=== PATIENT | female | born 1960 | race Caucasian/White ===

== ENCOUNTER 2023-01-10 12:51 | Outpatient (REF) | payer MEDICARE, MEDICAID, SELFPAY ==
--- NOTE | ~2023-01-10 | XR_ITS ---
EXAMINATION: XR LUMBOSACRAL SPINE WITH OBLIQUES CLINICAL INFORMATION: Neurogenic claudication. COMPARISON: None available. TECHNIQUE: AP, both oblique, and lateral views of the lumbar spine. Lateral view of the lumbosacral junction. FINDINGS: There is maintained lumbar lordosis. There are disc prostheses at L3-L4 and L4-L5 disc levels stabilized with posterior hardware from L3 through L5 vertebrae. There is severe loss of L2-L3 and L5-S1 disc levels with moderate ventral spondylosis. No visible acute fracture, dislocation or subluxation seen. The SI joints are symmetrical. There is a large amount of stool in the left colon. XR/XR lumbar spine 4V min IMPRESSION: L3-L4 and L4-L5 disc fusion stabilized with posterior hardware. No visible acute fracture or lytic process seen. Severe degenerative disc changes with spondylosis L1-L2 and L5-S1 disc levels.
== END 2023-01-10 12:52 | disposition home or self-care (01) ==
LOC: HO.HOSX 12:51
PROVIDERS: Visit Provider Neurological Surgery
DX: M48.061 Spinal stenosis, lumbar region without neurogenic claudication (principal); M51.36 Other intervertebral disc degeneration, lumbar region
CPT/HCPCS: 72110; 99202

== ENCOUNTER 2023-02-06 13:16 | Inpatient (IN) | payer MEDICARE, MEDICAID, SELFPAY ==
[2023-01-25 13:01] VITALS: BP 106/75; PULSE 93; RESP 16; O2SAT 96; BMI 27.4
--- NOTE | 2023-01-25 13:18 | HO.ANESPROP2 ---
Documented by User: Liat Douglass NP 01/27/23 14:49 HPI - Anesthesia Eval Consult details Narrative: 62yo F for L2-L3 Transkambin Lumbar Interbody Fusion insertion of instrumentation,L3-L5 REMOVAL Medically optimized (new dx of RBBB) PMFSH Active Problems Active Problems: All Active Problems (Updated 01/25/23 @ 12:48 by Vane Singleton RN) Lumbar spinal stenosis due to adjacent segment disease after fusion procedure (Acute) Past Medical History Medical History (Updated 02/06/23 @ 11:10 by Khalida Beckford MD) Anxiety Ataxia Benign paroxysmal positional vertigo Bursitis Cardiomyopathy Chronic pain CKD (chronic kidney disease) Conductive hearing loss Constipation Gait instability GERD (gastroesophageal reflux disease) Habitual snoring Hyperlipidemia Imbalance Numbness Post laminectomy syndrome Post-nasal drip Schizoaffective disorder Sleep apnea Somatization disorder Spondylolisthesis of lumbar region TIA (transient ischemic attack) Urinary bladder incontinence Weakness Family History Family history of problems with anesthesia: No Surgical History Surgical History History of back surgery History of hysterectomy History of selective injection of anesthetic agent around lumbar nerve root History of total right knee replacement Hx of arthrodesis Hx of cholecystectomy Hx of tonsillectomy Hx of total knee arthroplasty S/P arthrocentesis History of Problems with Anesthesia: No Social History Social History Are you a primary clinical care coordinator to a significant other at home: No Do you presently have visiting nurse or other home services: Yes (homemaker) Patient Tobacco Use Status: Never used Tobacco Use of substances other than those prescribed or required for medical reasons: No Have you been hit, kicked, punched, or otherwise hurt by someone within the past year? If so, by whom?: No Are you DNR?: No Advance Directives: No Advance Directives Information Provided: Yes Advance Directives on File: No Recently lost weight without trying: No Nutrition Risks: No Nutritional Risk Patient : No : No Poor oral hygiene: Yes (dentures full upper and lower) Narrative Narrative: No recent illness No CP/SOB. Activity limited to pain Meds Allergies Allergy/AdvReac Type Severity Reaction Status Date / Time aluminum hydroxide Allergy Unknown Verified 01/24/23 11:41 [From Maalox Maximum Strength] ciprofloxacin Allergy Unknown Verified 01/24/23 11:41 fluoxetine [From Prozac] Allergy Agitated Verified 01/24/23 11:41 haloperidol [From Haldol] Allergy Itching Verified 01/10/23 13:28 hydrocodone [From Vicodin] Allergy Itching Verified 01/10/23 13:28 magnesium hydroxide Allergy Unknown Verified 01/24/23 11:41 [From Maalox Maximum Strength] simethicone Allergy Unknown Verified 01/24/23 11:41 [From Maalox Maximum Strength] sulfamethoxazole Allergy Unknown Verified 01/24/23 11:41 [From Bactrim] thioridazine [From Mellaril] Allergy Itching Verified 01/10/23 13:28 trimethoprim [From Bactrim] Allergy Unknown Verified 01/24/23 11:41 Home Medications Medication Instructions Recorded Confirmed Last Taken Type aripiprazole 10 mg tablet 10 mg PO DAILY 01/24/23 01/24/23 02/06/23 History azelastine 137 mcg (0.1 %) nasal 1 spray intranasal BID 01/24/23 01/24/23 02/05/23 History spray aerosol ciclopirox 0.77 % topical gel 1 appl topical BID 01/24/23 01/24/23 02/05/23 History clonazepam 0.5 mg tablet 0.5 mg PO BID PRN anxiety 01/24/23 01/24/23 Unknown History clonazepam 2 mg tablet 2 mg PO TID 01/24/23 01/24/23 02/06/23 History clozapine 100 mg tablet 300 mg PO BEDTIME 01/24/23 01/24/23 02/05/23 History diclofenac sodium 1 % topical gel 1 ea topical BID 01/24/23 01/24/23 02/05/23 History docusate sodium 100 mg capsule 100 mg PO BID 01/24/23 01/24/23 02/05/23 History estradiol 0.01% (0.1 mg/gram) 2 g vaginal DAILY 01/24/23 01/24/23 02/05/23 History vaginal cream fluticasone propionate 50 1 spray intranasal DAILY 01/24/23 01/24/23 02/05/23 History mcg/actuation nasal spray,suspension lidocaine 5 % topical patch 1 patch topical DAILY 01/24/23 01/24/23 02/05/23 History montelukast 10 mg tablet 10 mg PO BEDTIME 01/24/23 01/24/23 02/05/23 History omeprazole 40 mg capsule,delayed 40 mg PO BID 01/24/23 01/24/23 02/06/23 History release paroxetine HCl 30 mg tablet 60 mg PO DAILY 01/24/23 01/24/23 02/06/23 History polyethylene glycol 3350 17 17 g PO TID PRN constipation 01/24/23 02/06/23 02/05/23 History gram/dose oral powder sennosides 8.6 mg tablet (senna) 8.6 mg PO BEDTIME 01/24/23 01/25/23 02/05/23 History tolterodine 4 mg capsule,extended 4 mg PO BEDTIME 01/24/23 01/25/23 02/05/23 History release 24 hr loratadine 10 mg tablet 10 mg PO BEDTIME 01/25/23 01/25/23 02/05/23 History multivitamin with iron 1 tab PO DAILY 01/25/23 01/25/23 02/05/23 History paliperidone 6 mg tablet,extended 6 mg PO QAM 01/25/23 01/25/23 02/06/23 History release 24 hr (Invega) Exam Exam Date and Time: January 25, 2023 1318 Height,Weight and Vital Signs: Height 5 ft 7 in Weight 79.4 kg Last Vital Signs Pulse 93 01/25/23 13:01 Resp 16 01/25/23 13:01 BP 106/75 01/25/23 13:01 Pulse Ox 96 01/25/23 13:01 O2 Del Method Room Air 01/25/23 13:01 Pertinent Lab Results Pertinent Lab Results: 01/17/23 labs from outside facility CBC wnl except Hgb 11.5 BMP wnl except BUN 29, Creat 1.31 (known CKD followed by PCP) Narrative Narrative: EKG 12/2022 NSR RBBB Voltage Criteria for LVH Abnormal EKG RBBB is new since 12/2020 ECHO 2018 Mildly decreased systolic function. LVEF 49% Nml RV size. Wall motional abnormal. Mid-apical free wall of the ventricle appears hypokinetic. Nml LA size No significant valve disease identified Airway Mallampati Class: II TM Dist: >3cm Neck ROM: Full Denture: Upper and Lower Heart: RRR Lungs: CTAB Assessment and Plan Assessment Anesthesia Assessment: Anesthesia Plan Discussed and PAT Visit Final Anesthetic Review Family History of Problems with Anesthesia: No History of Problems with Anesthesia: No Documented by User: Khalida Beckford MD 02/06/23 11:11 PMF Active Problems Active Problems: All Active Problems (Updated 02/06/23 @ 10:48 by Khalida Beckford MD) Lumbar spinal stenosis due to adjacent segment disease after fusion procedure (Acute) Past Medical History Medical History (Updated 02/06/23 @ 11:10 by Khalida Beckford MD) Anxiety Ataxia Benign paroxysmal positional vertigo Bursitis Cardiomyopathy Chronic pain CKD (chronic kidney disease) Conductive hearing loss Constipation Gait instability GERD (gastroesophageal reflux disease) Habitual snoring Hyperlipidemia Imbalance Numbness Post laminectomy syndrome Post-nasal drip Schizoaffective disorder Sleep apnea Somatization disorder Spondylolisthesis of lumbar region TIA (transient ischemic attack) Urinary bladder incontinence Weakness Surgical History Surgical History History of back surgery History of hysterectomy History of selective injection of anesthetic agent around lumbar nerve root History of total right knee replacement Hx of arthrodesis Hx of cholecystectomy Hx of tonsillectomy Hx of total knee arthroplasty S/P arthrocentesis Social History Social History Are you a primary clinical care coordinator to a significant other at home: No Do you presently have visiting nurse or other home services: Yes (homemaker) Patient Tobacco Use Status: Never used Tobacco Use of substances other than those prescribed or required for medical reasons: No Have you been hit, kicked, punched, or otherwise hurt by someone within the past year? If so, by whom?: No Are you DNR?: No Advance Directives: No Advance Directives Information Provided: Yes Advance Directives on File: No Recently lost weight without trying: No Nutrition Risks: No Nutritional Risk Patient : No : No Poor oral hygiene: Yes (dentures full upper and lower) Meds Allergies Allergy/AdvReac Type Severity Reaction Status Date / Time aluminum hydroxide Allergy Unknown Verified 01/24/23 11:41 [From Maalox Maximum Strength] ciprofloxacin Allergy Unknown Verified 01/24/23 11:41 fluoxetine [From Prozac] Allergy Agitated Verified 01/24/23 11:41 haloperidol [From Haldol] Allergy Itching Verified 01/10/23 13:28 hydrocodone [From Vicodin] Allergy Itching Verified 01/10/23 13:28 magnesium hydroxide Allergy Unknown Verified 01/24/23 11:41 [From Maalox Maximum Strength] simethicone Allergy Unknown Verified 01/24/23 11:41 [From Maalox Maximum Strength] sulfamethoxazole Allergy Unknown Verified 01/24/23 11:41 [From Bactrim] thioridazine [From Mellaril] Allergy Itching Verified 01/10/23 13:28 trimethoprim [From Bactrim] Allergy Unknown Verified 01/24/23 11:41 Home Medications Medication Instructions Recorded Confirmed Last Taken Type aripiprazole 10 mg tablet 10 mg PO DAILY 01/24/23 01/24/23 02/06/23 History azelastine 137 mcg (0.1 %) nasal 1 spray intranasal BID 01/24/23 01/24/23 02/05/23 History spray aerosol ciclopirox 0.77 % topical gel 1 appl topical BID 01/24/23 01/24/23 02/05/23 History clonazepam 0.5 mg tablet 0.5 mg PO BID PRN anxiety 01/24/23 01/24/23 Unknown History clonazepam 2 mg tablet 2 mg PO TID 01/24/23 01/24/23 02/06/23 History clozapine 100 mg tablet 300 mg PO BEDTIME 01/24/23 01/24/23 02/05/23 History diclofenac sodium 1 % topical gel 1 ea topical BID 01/24/23 01/24/23 02/05/23 History docusate sodium 100 mg capsule 100 mg PO BID 01/24/23 01/24/23 02/05/23 History estradiol 0.01% (0.1 mg/gram) 2 g vaginal DAILY 01/24/23 01/24/23 02/05/23 History vaginal cream fluticasone propionate 50 1 spray intranasal DAILY 01/24/23 01/24/23 02/05/23 History mcg/actuation nasal spray,suspension lidocaine 5 % topical patch 1 patch topical DAILY 01/24/23 01/24/23 02/05/23 History montelukast 10 mg tablet 10 mg PO BEDTIME 01/24/23 01/24/23 02/05/23 History omeprazole 40 mg capsule,delayed 40 mg PO BID 01/24/23 01/24/23 02/06/23 History release paroxetine HCl 30 mg tablet 60 mg PO DAILY 01/24/23 01/24/23 02/06/23 History polyethylene glycol 3350 17 17 g PO TID PRN constipation 01/24/23 02/06/23 02/05/23 History gram/dose oral powder sennosides 8.6 mg tablet (senna) 8.6 mg PO BEDTIME 01/24/23 01/25/23 02/05/23 History tolterodine 4 mg capsule,extended 4 mg PO BEDTIME 01/24/23 01/25/23 02/05/23 History release 24 hr loratadine 10 mg tablet 10 mg PO BEDTIME 01/25/23 01/25/23 02/05/23 History multivitamin with iron 1 tab PO DAILY 01/25/23 01/25/23 02/05/23 History paliperidone 6 mg tablet,extended 6 mg PO QAM 01/25/23 01/25/23 02/06/23 History release 24 hr (Invega) Exam Narrative Narrative: EKG 12/2022 NSR RBBB Voltage Criteria for LVH Abnormal EKG RBBB is new since 12/2020 ECHO 2018 Mildly decreased systolic function. LVEF 45-49%. Left ventricle is globally hypokinetic. Severe hypokinesis of mid-apical anterolateral, apical anterior, mid-apical inferolateral and apical ross. LV diastolic dysfunction Nml RV size. Wall motional abnormal. Mid-apical free wall of the right ventricle appears hypokinetic. Nml LA size No significant valve disease identified- Trace MR, mild TR, Mild pulmonary regurg Airway Mallampati Class: III (Small mouth) Neck ROM: Limited Heart: RRR. No murmur appreciated Assessment and Plan Assessment Anesthesia Assessment: Chart Reviewed Final Anesthetic Review NPO: Yes ASA Class: III Final Preanesthetic Review: No Changes in Pt Med Stat, Meds/Allgs Chart Reviewed, Consent Obtained/Reviewed and Anes Risks/Benef Reviewed Patient Risk: Intermediate Procedure Risk: Intermediate Assessment/Block/Sedation in SS: Assess/Block/Sedation-SS Anesthetic Plan Anesthetic Plan: GA Disposition: Standard PACU and Inp. Admit - Standard Bed
--- NOTE | 2023-02-03 17:34 | PHA.MEDREC ---
Pharmacy Consult ? Medication Reconciliation Pharmacy has reviewed the medication reconciliation.
[2023-02-06] VITALS (10 sets, daily range): BP systolic 111–140; BP diastolic 56–76; PULSE 81–92; RESP 14–18; TEMP 36–36.9; O2SAT 94–98; BMI 27.3
--- NOTE | ~2023-02-06 | FL_ITS ---
EXAMINATION: XR FLUOROSCOPY WITH IMAGES CLINICAL INFORMATION: L2-L3 lumbar interbody fusion. COMPARISON: Previous lumbar spine x-ray December 2022. TECHNIQUE: Fluoroscopy Supervised By: Dr. Weathers. Fluoroscopy Time: 0.7 minutes. Cumulative Dose: 64 mGy. DAP: 11 Gy-cm2. Images: 5. FINDINGS: Initial images demonstrate old posterior fusion hardware with posterior rods and left transpedicular screws at L3, L4 and L5 and right transpedicular screws at L3 and L5. There is transverse stabilization erik at L2-L3. Final image demonstrates new posterior rods and bilateral transpedicular screws at L2-L3. Old posterior fusion hardware at L3, L4 and L5 as thin removed. There is new disc prosthesis at L2-L3. There is unchanged horizontal stabilization erik at L3-L4. There is unchanged intervertebral body disc spacer at L4-L5. FL/FL guidance in OR IMPRESSION: Fluoroscopic guidance for spinal surgery.
[2023-02-06] MEDS: Lactated Ringers 1,000 ML 100 ML IVCONT (09:09)
[2023-02-06] MEDS: methocarbamoL 750 MG TABLET PO ×2 (09:15→09:16)
[2023-02-06] MEDS: Gabapentin 300 MG CAPSULE PO (09:16)
--- NOTE | 2023-02-06 12:07 | MHC.SHP ---
Pre-Procedural Eval Section A Date of Service: 02/06/23 The patient is an INPATIENT: No The History & Physical has been completed within 30 days and I have reviewed it.: Yes Section B Chief Complaint: lumbar ddd Allergies: Allergies Allergy/AdvReac Type Severity Reaction Status Date / Time aluminum hydroxide Allergy Unknown Verified 01/24/23 11:41 [From Maalox Maximum Strength] ciprofloxacin Allergy Unknown Verified 01/24/23 11:41 fluoxetine [From Prozac] Allergy Agitated Verified 01/24/23 11:41 haloperidol [From Haldol] Allergy Itching Verified 01/10/23 13:28 hydrocodone [From Vicodin] Allergy Itching Verified 01/10/23 13:28 magnesium hydroxide Allergy Unknown Verified 01/24/23 11:41 [From Maalox Maximum Strength] simethicone Allergy Unknown Verified 01/24/23 11:41 [From Maalox Maximum Strength] sulfamethoxazole Allergy Unknown Verified 01/24/23 11:41 [From Bactrim] thioridazine [From Mellaril] Allergy Itching Verified 01/10/23 13:28 trimethoprim [From Bactrim] Allergy Unknown Verified 01/24/23 11:41 Plan Diagnosis/Plan: Unchanged I have reviewed the history and physical and performed a pertinent physical examination on my patient. No changes have occurred unless specified. Time Spent With Patient Time: Total time managing care of this patient today ___10_ minutes.
--- NOTE | 2023-02-06 15:35 | W.PM.OPN ---
Operative Note Operative Note Date of Service: 02/06/23 Narrative: Preoperative Diagnosis: (1)Adjacent degenerative disc disease L2-3 with neurogenic claudication. Status post L3-L5 fusion Procedure: 1) L2-3 oblique lateral lumbar interbody fusion with discectomy, preparation of the endplates and placement of a bullet cage packed with allograft, anterior to the transverse process and modified prone position, with intraoperative biplanar fluoroscopy imaging and electrophysiological monitoring 2) removal L3-L5 posterior instrumentation; minimally invasive L2-3pedicle screw placement and posterior lateral instrumentation and fusion L2-3 with electrophysiological monitoring Consent Informed Consent was obtained for this operation. I have explained the nature, purpose and benefits of the operation. I have discussed the risks and benefit of the operation including possible complications or adverse events with patient/family. Alternative(s) were discussed with the patient with their relative benefits and risks as well as the consequences of not accepting the operation were included in obtaining consent. Surgeon: ANNIE ASTUDILLO MD, PHD Procedure Assisted By: Wero Mota Description of Procedure: is this 62-year-old female had a previous fusion L3-L5 done in another institution. She suffered from adjacent degenerative disc disease causing back pain and leg pain. The patient was offered an oblique lumbar lateral interbody fusion followed by a posterior lateral instrumented fusion L2-3 with removal of the previous L3-L5 posterior instrumentation. The procedure and complications were explained and the patient was consented. The patient was brought to the operating room and endotracheally intubated. The patient was put in a prone position on the Burton spine table. 2C arms were installed for fluoroscopy. Prepping and draping was done followed by timeout. The landmarks, including spinal processes, transverse processes, disc space, endplates and pedicles are identified and marked. The following steps are taken for the L2-3 level: Cage size 9 mm high and 33 mm long titanium . A small incision was made superior to the mid iliac crest and then using biplanar fluoroscopy visualization, under electrophysiological monitoring and stimulation, we introduced an electrophysiological probe through the retroperitoneal space into the desired disc anterior to the transverse process and then passed it into the disc space after finding a silent window. The sleeve was retained and the probe was removed, then the K wire was passed sequentially into the disc space. A dilating tube was then passed along the same route. Following this, a working channel was manually held in position while a series of disc cleaning tools were passed through the channel to remove the affected disc under clear and direct biplanar fluoroscopic visualization, decompress the nerve roots and equal corticated vertebral endplates at this segment. Arthrodesis of the intervertebral space for an anterior retroperitoneal exposure and application of intervertebral biomechanical device was then accomplished by using the working channel that had been placed into the retroperitoneal space anterior to the transverse process. After adequate decompression and preparation of the endplates, we then put allograft anterior into the disc space followed by a titanium interbody spacer, which is packed tightly with allograft bone for stabilization and arthrodesis of the anterior vertebral space and inserted the cage into the midportion of the intervertebral disc. This again was done on the biplanar fluoroscopic visualization. All bone was confined to the borders of the disc space. Accordingly, 2 paramedian incisions were made lateral from the L2 pedicles. The Pediguad tap was used to create a transpedicular trajectory into the L2 vertebral body. A K-wire was inserted And a specially designed instrument was advanced over the K-wire to decorticate the posterolateral gutter. Then 2 additional paramedian incisions were made over the previous placed L3-L5 posterior instrumentation. In the previous placed pedicle screws were exposed. The locking caps rods and screws were taken out. A K-wire was placed in the L3 pedicles and over the K-wire a 7.5 x 45 mm screw was inserted after decortication of the posterolateral gutter. Then a 6.5 x 45 mm screws were placed into the L2 pedicles followed by removal of the K-wires. A 50 mm erik was inserted bilaterally and locked down with locking caps. Allograft was laid down in the posterolateral gutter to complete the L2-3 posterolateral fusion. Final x-rays and AP and lateral projection showed good position of the interbody device and instrumentation. The paramedian incisions and the incision in the flank were closed in 2 layers. Steri-Strips were used to approximate the incisions. An OpSite with Tegaderm was used to cover the incision. All sponge and needle counts were correct. The patient was extubated and transported in a stable condition to the recovery room. This procedure was done with the aid of a physican's economic research assistant as a qualified resident was not available. The physician economic research assistant was critical for the following aspects of surgery Exposure and removal of the previous L2-L5 instrumentation on the right side; placement and securing of new bilateral rods; Closure of the incisions. Anesthesia: General Estimated Blood Loss (ml): Forty Specimen: None Duration of Surgery: 1 hour 20 Postoperative Plan: Admit to floor for monitoring
[2023-02-06] MEDS: 0.9 % Sodium Chloride 1,000 ML 75 ML IVCONT (18:06)
[2023-02-06] MEDS: Ketorolac Tromethamine 15 MG/ML VIAL IVPUSH ×2 (18:06→23:34)
[2023-02-06] MEDS: Acetaminophen 1,000 MG/100 ML PIGGYBACK 400 MG IV ×2 (18:06→23:33)
--- NOTE | 2023-02-06 18:28 | PC.NURSE ---
1800 pt received from PACU . pt sleepy but arouses to name and follows commands MEDINA well equal and strong . compression sleeves in place pt instructed on use of incentive spirometer needs encouragement. lumbar dressing with SS drainage SONIA Alejandro notified okay to change if saturated . routine post op care . DTV by 1999
[2023-02-06] MEDS: ceFAZolin Sodium/Dextrose,Iso 2 GM/50 ML PIGGYBACK IV (19:47)
[2023-02-06] MEDS: ondansetron HCL 4 MG/2 ML VIAL IVPUSH (23:36)
[2023-02-07] MEDS: ceFAZolin Sodium/Dextrose,Iso 2 GM/50 ML PIGGYBACK IV ×2 (01:01→07:20)
[2023-02-07 03:58] VITALS: BP 129/69; PULSE 78; RESP 18; TEMP 36.6; O2SAT 98
[2023-02-07] MEDS: Acetaminophen 1,000 MG/100 ML PIGGYBACK 400 MG IV ×4 (05:02→23:25)
[2023-02-07] MEDS: Omeprazole 40 MG CAPSULE.DR PO ×2 (05:04→16:39)
[2023-02-07] MEDS: Ketorolac Tromethamine 15 MG/ML VIAL IVPUSH (05:04)
[2023-02-07 07:41] LABS: Neut%MD 76.1 %; Neutrophils Absolute Auto 8.9 x10*3/uL (2.0-8.3); WBCANC 11.7 X10*3/uL
[2023-02-07 08:09] VITALS: O2SAT 100
[2023-02-07] MEDS: ARIPiprazole 10 MG TABLET PO (08:39)
[2023-02-07] MEDS: Multivitamin TABLET 1 TAB PO (08:39)
[2023-02-07] MEDS: PARoxetine HCL 30 MG TABLET 60 MG PO (08:39)
[2023-02-07] MEDS: Paliperidone ER 6 MG TAB.ER.24 PO (08:39)
[2023-02-07] MEDS: Docusate Sodium 100 MG CAPSULE PO ×2 (08:39→19:31)
[2023-02-07] MEDS: clonazePAM 1 MG TABLET 2 MG PO ×2 (08:39→19:31)
[2023-02-07] MEDS: Azelastine HCl Nasal 137 MCG/Spray 30 ML 1 SPRAY NOSTRIL-B ×2 (08:40→19:30)
[2023-02-07] MEDS: Fluticasone Propionate Nasal 16 GM SPRAY 1 SPRAY NOSTRIL-B (08:40)
[2023-02-07] MEDS: oxyCODONE HCl Immed Release 5 MG TABLET 10 MG PO ×2 (08:40→15:04)
[2023-02-07 10:44] VITALS: PULSE 100; O2SAT 95
--- NOTE | 2023-02-07 11:00 | PC.NURSE ---
pt voided but missed hat for measuring purposes , bladder scanned for 46 cc. noted tremors from earlier seem to be improving Merritt Alejandro notified.
--- NOTE | 2023-02-07 12:27 | HO.NEURO.PN ---
Neurosurgery Operative Note Date of Service: 02/07/23 Narrative: Postoperative day 1. L2-3 interbody fusion using trans Kambin approach, removal of old instrumentation L3-L5 Patient clinically doing okay, she had minimal back pain overnight, her leg pain is better. She did report an odd feeling of twitching sensations through her legs when she would get an up and walking. It made her feel like she was unsteady. She has been able to void, with minimal residual although she did have to be straight cathed twice overnight. She is starting to tolerate a diet as well. Afebrile, vital signs stable Physical exam: Patient is awake alert oriented, no acute distress, she has full motor strength bilateral lower extremities and we were able to reproduce some of the jerking sensations when she is doing her motor exam. Sensation is normal. She has no clonus or hyperreflexia. Her dressings are clean and dry with small amount of staining but no signs of hematoma. Impression: Postop day 1. L2-3 interbody fusion using a trans Kambin approach removal of old instrumentation from L3-L5, clinically doing well, minimal if any back pain, preoperative leg pain is improved. The only odd think she is experiencing right now this twitching when she gets up to walk. A not sure if it is somehow related to her psychiatric medications and anesthesia or if his just spasm related secondary to pain. We will monitor her for another night but anticipate discharge home in the morning. Patient seen at bedside with Dr. Weathers.
--- NOTE | 2023-02-07 12:30 | P.DS_ITS ---
DS: Providers Provider Date of Service: 02/06/23 <SONIA Mondragon - Last Filed: 02/07/23 12:39> Date of admission: 02/06/23 13:16 <SONIA Mondragon - Last Filed: 02/07/23 12:39> Date of discharge: 02/08/23 <SONIA Mondragon - Last Filed: 02/07/23 12:39> Primary care physician: Lainey Escalante MD <SONIA Mondragon - Last Filed: 02/07/23 12:39> Admitting clinician: Karan Weathers <SONIA Mondragon - Last Filed: 02/07/23 12:39> DS: Diagnosis Discharge Diagnosis (1) Lumbar spinal stenosis due to adjacent segment disease after fusion procedure: Status: Acute <SONIA Mondragon - Last Filed: 02/07/23 12:39> DS: Summary Hospital Course Hospital Course: Status post uncomplicated L2-3 minimally invasive fusion for adjacent degenerative disc disease on 07/09/2023. She is awake and alert. She is walking independently. Incisions are dry and clean. No neurological deficits. <SONIA Mondragon - Last Filed: 02/07/23 12:39> Time Spent with Patient Time attestation: Total time managing care of this patient today ____ minutes. <SONIA Mondragon - Last Filed: 02/07/23 12:39> Total time managing care of this patient today __10__ minutes. <Karan Weathers MD, PhD - Last Filed: 02/08/23 12:56> Discharge coordination time: Less than 30 minutes <Karan Weathers MD, PhD - Last Filed: 02/08/23 12:56> Specific discharge activities: No heavy lifting, avoid twisting or bending. <Karan Weathers MD, PhD - Last Filed: 02/08/23 12:56> Quality: Safe Use of Opioids Does Pt have an Active Cancer Diagnosis on the Problem List?: No <Karan Weathers MD, PhD - Last Filed: 02/08/23 12:56> Quality: Stroke Does the patient have a stroke diagnosis?: No <Karan Weathers MD, PhD - Last Filed: 02/08/23 12:56> Physical Exam Vital Signs: Vital Signs: Last Vital Signs Temp 98 F 02/07/23 03:58 Pulse 100 02/07/23 10:44 Resp 18 02/07/23 03:58 BP 129/69 02/07/23 03:58 Pulse Ox 95 02/07/23 10:44 O2 Del Method Nasal Cannula 02/07/23 08:09 O2 Flow Rate 1 02/07/23 08:09 FiO2 42 02/06/23 17:00 BMI result Body Mass Index 27.3 <SONIA Mondragon - Last Filed: 02/07/23 12:39> DS: Data Data Completed and Pending Labs on day of discharge: Laboratory Results - last 24 hr 02/07/23 07:20 Absolute Neuts (auto) 8.9 H <SONIA Mondragon - Last Filed: 02/07/23 12:39> Discharge Plan Discharge Anticipated Discharge Date/Time: 02/08/23 09:13 <SONIA Mondragon - Last Filed: 02/07/23 12:39> Patient Disposition: Home Health Service <SONIA Mondragon - Last Filed: 02/07/23 12:39> Discharge Diagnosis: lumbar degenerative disk disease <SONIA Mondragon - Last Filed: 02/07/23 12:39> lumbar degenerative disk disease <Karan Weathers MD, PhD - Last Filed: 02/08/23 12:56> Referrals: Lainey Escalante MD [Primary Care Provider] - 1 Week <SONIA Mondragon - Last Filed: 02/07/23 12:39> Discharge Medications: New oxycodone 5 mg tablet See Rx Instructions .ROUTE .COMPLEX PRN (Reason: pain) Qty: 40 0RF Rx Instructions: 1-2 tabs po q4 hours prn pain Partial Fill upon patient request. Continued clozapine 100 mg tablet 300 mg PO BEDTIME clonazepam 0.5 mg tablet 0.5 mg PO BID PRN (Reason: anxiety) omeprazole 40 mg capsule,delayed release(DR/EC) 40 mg PO BID paroxetine HCl 30 mg tablet 60 mg PO DAILY lidocaine 5 % adhesive patch,medicated 1 patch topical DAILY clonazepam 2 mg tablet 2 mg PO TID docusate sodium 100 mg capsule 100 mg PO BID montelukast 10 mg tablet 10 mg PO BEDTIME azelastine 137 mcg (0.1 %) aerosol,spray 1 spray intranasal BID polyethylene glycol 3350 17 gram/dose powder 17 g PO TID PRN (Reason: constipation) fluticasone propionate 50 mcg/actuation spray,suspension 1 spray intranasal DAILY aripiprazole 10 mg tablet 10 mg PO DAILY diclofenac sodium 1 % gel 1 ea topical BID sennosides [senna] 8.6 mg tablet 8.6 mg PO BEDTIME tolterodine 4 mg capsule,extended release 24hr 4 mg PO BEDTIME ciclopirox 0.77 % Gel 1 appl TOPICAL BID estradiol 0.01 % (0.1 mg/gram) Cream 2 g VAGINAL DAILY Rx Instructions: for 7 days paliperidone [Invega] 6 mg Tablet Extended Release 24 Hr 6 mg PO QAM multivitamin with iron Tablet 1 tab PO DAILY loratadine 10 mg Tablet 10 mg PO BEDTIME <SONIA Mondragon - Last Filed: 02/07/23 12:39> Discharge Orders: Discharge Order (Routine); Ordered 02/08/23 Ordered By: Karan Weathers <SONIA Mondragon - Last Filed: 02/07/23 12:39> Diet: Advance to usual diet <SONIA Mondragon - Last Filed: 02/07/23 12:39> Advance to usual diet <Karan Weathers MD, PhD - Last Filed: 02/08/23 12:56> Activity on Discharge: As tolerated <SONIA Mondragon - Last Filed: 02/07/23 12:39> As tolerated <Karan Weathers MD, PhD - Last Filed: 02/08/23 12:56> Stand Alone Forms: Patient Portal Discharge page <SONIA Mondragon - Last Filed: 02/07/23 12:39> Activity Restrictions/Additional Instructions: After your spinal surgery we ask you to observe the following restrictions/guidelines: Activity: It is normal to feel some discomfort as you increase your activity, but that will improve with time. We ask you avoid heavy lifting or acitivities that cause pain. As a general rule, 8lbs is a safe limit for lifting right after surgery. Walk as much as you feel comfortable but not to exhaustion. You will feel extra tired the first few days after surgery. Stay well hydrated. It is OK to walk up and down stairs You may return to driving when you are off narcotics (such as vicodin, oxycodone, dilaudid, etc), and you are back to normal functional capacity. If you have any concerns please check with office before driving. Return to work is specific to each patient and each surgery, so please speak with your doctor/PA at first follow up. Please bring paperwork such as FMLA at that time if you need it filled out. Medications: We will give you a short supply of narcotics after surgery (usually one weeks worth). If you need more please call the office but do not use more than prescribed. You will need to give our office 48 hours notice if you need narcotics refilled and we do not fill narcotics on weekends or evenings. If you are on a narcotic, it is a good idea to take a stool softener such as colace or senna to avoid constipation If you take blood thinner such as aspirin, Plavix, Coumadin, Effient, Eliquis et c for conditions such as Afib, DVT, Pulmonary embolus, coronary disease, stents etc please speak with your surgeon about specific details as to when you can resume these medications. You can resume NSAIDs on post op day 1 (eg: Motrin, Naproxen, etc). Follow up: Please call the office, , after surgery to arrange a 3 week follow up for wound check. Wound Care: You may remove your dressing on the first day after surgery. You may leave open to air. Please do not remove the steri strips underneath. they will fall off on their own in one week. IT IS NORMAL FOR THE WOUND TO OOZE OR BE BLOODY FOR A FEW DAYS AFTER SURGERY. IF THIS HAPPENS JUST PLACE NEW DRESSING OVER IT TO AVOID STAINING CLOTHES. You may shower on post op day # 1 We ask that you do not let the water soak the wound. If it does get wet, just towel dry lightly. Please do not scrub your incision or place any type of chemical/ointment on the wound. No tub baths, pools or jacuzzis for one month. If you have any leaking or redness from your wound, or fevers, please call office <SONIA Mondragon - Last Filed: 02/07/23 12:39> Care Plan Goals: discharge home <SONIA Mondragon - Last Filed: 02/07/23 12:39> Health Concerns: none <SONIA Mondragon - Last Filed: 02/07/23 12:39> Plan of Treatment: discharge home <SONIA Mondragon - Last Filed: 02/07/23 12:39> Assessment: stable <SONIA Mondragon - Last Filed: 02/07/23 12:39>
--- NOTE | 2023-02-07 12:43 | PM.DS ---
DS: Providers Provider Date of admission: 02/06/23 13:16 Primary care physician: Lainey Escalante MD DS: Diagnosis Discharge Diagnosis (1) Lumbar spinal stenosis due to adjacent segment disease after fusion procedure: Status: Acute DS: Summary Time Spent with Patient Time attestation: Total time managing care of this patient today ____ minutes. Physical Exam Vital Signs: Vital Signs: Last Vital Signs Temp 98 F 02/07/23 03:58 Pulse 100 02/07/23 10:44 Resp 18 02/07/23 03:58 BP 129/69 02/07/23 03:58 Pulse Ox 95 02/07/23 10:44 O2 Del Method Nasal Cannula 02/07/23 08:09 O2 Flow Rate 1 02/07/23 08:09 FiO2 42 02/06/23 17:00 BMI result Body Mass Index 27.3 DS: Data Data Completed and Pending Labs on day of discharge: Laboratory Results - last 24 hr 02/07/23 07:20 Absolute Neuts (auto) 8.9 H Discharge Plan Discharge Patient Disposition: Home, Self-Care Discharge Diagnosis: lumbar degenerative disk disease Referrals: Lainey Escalante MD [Primary Care Provider] - 1 Week Discharge Medications: New oxycodone 5 mg tablet See Rx Instructions .ROUTE .COMPLEX PRN (Reason: pain) Qty: 40 0RF Rx Instructions: 1-2 tabs po q4 hours prn pain Partial Fill upon patient request. Continued clozapine 100 mg tablet 300 mg PO BEDTIME clonazepam 0.5 mg tablet 0.5 mg PO BID PRN (Reason: anxiety) omeprazole 40 mg capsule,delayed release(DR/EC) 40 mg PO BID paroxetine HCl 30 mg tablet 60 mg PO DAILY lidocaine 5 % adhesive patch,medicated 1 patch topical DAILY clonazepam 2 mg tablet 2 mg PO TID docusate sodium 100 mg capsule 100 mg PO BID montelukast 10 mg tablet 10 mg PO BEDTIME azelastine 137 mcg (0.1 %) aerosol,spray 1 spray intranasal BID polyethylene glycol 3350 17 gram/dose powder 17 g PO TID PRN (Reason: constipation) fluticasone propionate 50 mcg/actuation spray,suspension 1 spray intranasal DAILY aripiprazole 10 mg tablet 10 mg PO DAILY diclofenac sodium 1 % gel 1 ea topical BID sennosides [senna] 8.6 mg tablet 8.6 mg PO BEDTIME tolterodine 4 mg capsule,extended release 24hr 4 mg PO BEDTIME ciclopirox 0.77 % Gel 1 appl TOPICAL BID estradiol 0.01 % (0.1 mg/gram) Cream 2 g VAGINAL DAILY Rx Instructions: for 7 days paliperidone [Invega] 6 mg Tablet Extended Release 24 Hr 6 mg PO QAM multivitamin with iron Tablet 1 tab PO DAILY loratadine 10 mg Tablet 10 mg PO BEDTIME Diet: Advance to usual diet Activity on Discharge: As tolerated Stand Alone Forms: Patient Portal Discharge page Activity Restrictions/Additional Instructions: After your spinal surgery we ask you to observe the following restrictions/guidelines: Activity: It is normal to feel some discomfort as you increase your activity, but that will improve with time. We ask you avoid heavy lifting or acitivities that cause pain. As a general rule, 8lbs is a safe limit for lifting right after surgery. Walk as much as you feel comfortable but not to exhaustion. You will feel extra tired the first few days after surgery. Stay well hydrated. It is OK to walk up and down stairs You may return to driving when you are off narcotics (such as vicodin, oxycodone, dilaudid, etc), and you are back to normal functional capacity. If you have any concerns please check with office before driving. Return to work is specific to each patient and each surgery, so please speak with your doctor/PA at first follow up. Please bring paperwork such as FMLA at that time if you need it filled out. Medications: We will give you a short supply of narcotics after surgery (usually one weeks worth). If you need more please call the office but do not use more than prescribed. You will need to give our office 48 hours notice if you need narcotics refilled and we do not fill narcotics on weekends or evenings. If you are on a narcotic, it is a good idea to take a stool softener such as colace or senna to avoid constipation If you take blood thinner such as aspirin, Plavix, Coumadin, Effient, Eliquis etc for conditions such as Afib, DVT, Pulmonary embolus, coronary disease, stents etc please speak with your surgeon about specific details as to when you can resume these medications. You can resume NSAIDs on post op day 1 (eg: Motrin, Naproxen, etc). Follow up: Please call the office, , after surgery to arrange a 3 week follow up for wound check. Wound Care: You may remove your dressing on the first day after surgery. You may leave open to air. Please do not remove the steri strips underneath. they will fall off on their own in one week. IT IS NORMAL FOR THE WOUND TO OOZE OR BE BLOODY FOR A FEW DAYS AFTER SURGERY. IF THIS HAPPENS JUST PLACE NEW DRESSING OVER IT TO AVOID STAINING CLOTHES. You may shower on post op day # 1 We ask that you do not let the water soak the wound. If it does get wet, just towel dry lightly. Please do not scrub your incision or place any type of chemical/ointment on the wound. No tub baths, pools or jacuzzis for one month. If you have any leaking or redness from your wound, or fevers, please call office Care Plan Goals: discharge home Health Concerns: none Plan of Treatment: discharge home Assessment: stable
--- NOTE | 2023-02-07 13:56 | HO.POSTANES ---
Post Anesthesia Evaluation Post Anesthesia Evaluation Date of Service: 02/07/23 Vital Signs: Vital Signs Temp Pulse Resp BP Pulse Ox O2 Del Method O2 Flow Rate 02/07/23 10:44 100 95 02/07/23 08:09 100 Nasal Cannula 1 02/07/23 03:58 98 F 78 18 129/69 98 Nasal Cannula 3 Anesthesia: General Endotracheal-GETA Mental Status: Awake Pain Control: Satisfactory Nausea/Vomiting: None Hydration: Adequate Anesthesia-Related Issues: No Anes. Related Issues
--- NOTE | 2023-02-07 13:57 | MHC.CM.PN ---
pt lives in [place] area where she lives alone she has homemaker servceis pt has made own arrangements for transport [facility] [place] [facility] [place] when dc ready
--- NOTE | 2023-02-07 15:08 | PC.NURSE ---
pt ambulating to BR with standby assist and walker greatly improved from this morning did not witness and tremors . voiding w/o difficulty. lumbar dressing CDI since morning change @0900. routine post op care continue.
[2023-02-07 15:32] VITALS: BP 109/54; PULSE 95; RESP 18; TEMP 36.7; O2SAT 95
[2023-02-07] MEDS: Sennosides 8.6 MG TABLET PO (19:30)
[2023-02-07] MEDS: cloZAPine 100 MG TABLET 300 MG PO (19:31)
[2023-02-07] MEDS: Montelukast Sodium 10 MG TABLET PO (19:31)
[2023-02-07] MEDS: Tolterodine Tartrate LA 4 MG CAP.ER.24H PO (19:31)
[2023-02-07] MEDS: Loratadine 10 MG TABLET PO (19:32)
[2023-02-07 19:43] VITALS: BP 95/55; PULSE 85; RESP 16; TEMP 37; O2SAT 95
[2023-02-08] MEDS: oxyCODONE HCl Immed Release 5 MG TABLET PO (03:11)
[2023-02-08 03:25] VITALS: BP 119/60; PULSE 86; RESP 18; TEMP 36.5; O2SAT 97
[2023-02-08] MEDS: Acetaminophen 1,000 MG/100 ML PIGGYBACK 400 MG IV ×2 (05:39→11:12)
[2023-02-08] MEDS: Omeprazole 40 MG CAPSULE.DR PO (05:40)
[2023-02-08 07:03] VITALS: BP 119/67; PULSE 94; RESP 20; TEMP 37.6; O2SAT 94
[2023-02-08] MEDS: Docusate Sodium 100 MG CAPSULE PO (08:25)
[2023-02-08] MEDS: PARoxetine HCL 30 MG TABLET 60 MG PO (08:25)
[2023-02-08] MEDS: Paliperidone ER 6 MG TAB.ER.24 PO (08:25)
[2023-02-08] MEDS: ARIPiprazole 10 MG TABLET PO (08:25)
[2023-02-08] MEDS: Multivitamin TABLET 1 TAB PO (08:25)
[2023-02-08] MEDS: clonazePAM 1 MG TABLET 2 MG PO (08:25)
[2023-02-08] MEDS: Azelastine HCl Nasal 137 MCG/Spray 30 ML 1 SPRAY NOSTRIL-B (08:26)
[2023-02-08] MEDS: Fluticasone Propionate Nasal 16 GM SPRAY 1 SPRAY NOSTRIL-B (08:32)
--- NOTE | 2023-02-08 09:25 | MHC.CM.PN ---
pt dcd home pt has arranged own transport
[2023-02-08] MEDS: oxyCODONE HCl Immed Release 5 MG TABLET 10 MG PO ×2 (10:05→14:12)
--- NOTE | 2023-02-08 13:03 | P.F2F_ITS ---
Service Date Service Date: 02/08/23 Encounter Date of encounter: 02/08/23 Reasons for Services Signs and symptoms assessed: Status post on lumbar fusion. Reason for physical therapy: home safety and mobility, therapeutic exercises, restore joint function, gait/transfer training, assess need for DME, ADL training, energy conservation and other MD Overseeing Care: Karan Weathers Homebound: Leaving the home is medically contraindicated at this time without the asist of a device and/or another person due th the listed conditions above and below. Reason homebound: pain with ambulation (Status post lumbar fusion) and poor balance / fall risk Certification: Based on the above findings, I certify that this patient is confined to the home and needs intermittent assisted care, physical therapy and/or speech therapy, or continues to need occupational therapy. The patient is under my care, and I have initiated the establishment of the plan of care. The patient will be followed by a physician who will periodically review the plan of care. Time Spent With Patient Time: Total time managing care of this patient today ___15_ minutes.
== END 2023-02-08 15:28 | disposition home health service (06) | DRG 460 ==
LOC: HO.SSSA 13:19 → HO.S3 16:37
PROVIDERS: Neurological Surgery; Admitting Provider Physician Assistant; PCP Internal Medicine; Visit Provider Physician Assistant
PROC: 0SG00A0 Fusion of Lumbar Vertebral Joint with Interbody Fusion Device, Anterior Approach, Anterior Column, Open Approach (ICD-10-PCS; principal; 2023-02-06 10:40)
DX: M48.062 Spinal stenosis, lumbar region with neurogenic claudication (principal); E78.5 Hyperlipidemia, unspecified; K21.9 Gastro-esophageal reflux disease without esophagitis; G47.33 Obstructive sleep apnea (adult) (pediatric); F41.9 Anxiety disorder, unspecified; Z79.899 Other long term (current) drug therapy
CPT/HCPCS: 36415; 85048; 97116; 97162; C1713; J0131; J0690; J1100; J1170; J1885; J2250; J2370; J2405; J3010; L8699

== ENCOUNTER → 2023-03-01 08:12 | Outpatient (BNVA) | payer MEDICARE, MEDICAID, SELFPAY | PROVIDERS: Visit Provider Neurological Surgery ==

== ENCOUNTER 2023-04-12 12:20 | Outpatient (REF) | payer MEDICARE, MEDICAID, SELFPAY ==
--- NOTE | ~2023-04-12 | XR_ITS ---
EXAMINATION: XR LUMBOSACRAL SPINE CLINICAL INFORMATION: Spinal stenosis lumbar region without neurogenic claudication COMPARISON: 01/10/2023 TECHNIQUE: 3 views of the lumbar spine. FINDINGS: Surgical clips right upper quadrant. Interval revision of posterior fusion with rods and screws traversing L2-L3. Disc spacers at L2-L3,L3-L4 and L4-L5. Hardware appears intact. Advanced degenerative changes at L5-S1 with loss of disc space height and hypertrophic change. XR/XR lumbar spine 2-3V IMPRESSION: Status post fusion at L2-L3 with disc spacers at L2-L5 levels.
== END 2023-04-12 12:21 | disposition home or self-care (01) ==
LOC: HO.HOSX 12:20
PROVIDERS: Visit Provider Neurological Surgery
DX: M48.061 Spinal stenosis, lumbar region without neurogenic claudication (principal); M51.36 Other intervertebral disc degeneration, lumbar region
CPT/HCPCS: 72100

== ENCOUNTER 2023-07-12 10:27 | Outpatient (REF) | payer OTHER, SELFPAY ==
--- NOTE | ~2023-07-12 | XR_ITS ---
EXAMINATION: XR LUMBOSACRAL SPINE WITH OBLIQUES CLINICAL INFORMATION: Spinal stenosis COMPARISON: 04/12/2023 TECHNIQUE: AP, both oblique, and lateral views of the lumbar spine. Lateral view of the lumbosacral junction. FINDINGS: There is no interval change since surgical repair of spinal stenosis with posterior fusion at the level of L2-L3 and disc spacers at the level of L2-L3 L3-L4 and L4-L5 in stable position. There are degenerative changes at the level of L5-S1. XR/XR lumbar spine 4V min IMPRESSION: No interval change
== END 2023-07-12 10:28 | disposition home or self-care (01) ==
LOC: HO.HOSX 10:27
PROVIDERS: PCP Internal Medicine; Visit Provider Neurological Surgery
DX: M48.061 Spinal stenosis, lumbar region without neurogenic claudication (principal); M51.36 Other intervertebral disc degeneration, lumbar region; Z98.1 Arthrodesis status
CPT/HCPCS: 72110; 99212

== ENCOUNTER 2023-07-12 10:27 | Outpatient (AMB) | payer MEDICARE, MEDICAID, SELFPAY ==
--- NOTE | 2023-07-12 10:55 | A.SPINEOV_ITS ---
Intake Intake Visit Reasons: 3 months f/up with xrays Intake Note: Ms. Hernandes is here today for her 3 month follow up. Security Compliance Specialist Required: No Allergies aluminum hydroxide [From Maalox Maximum Strength] Allergy (Verified 01/24/23 11:41) Unknown ciprofloxacin Allergy (Verified 01/24/23 11:41) Unknown fluoxetine [From Prozac] Allergy (Verified 01/24/23 11:41) Agitated haloperidol [From Haldol] Allergy (Verified 01/10/23 13:28) Itching hydrocodone [From Vicodin] Allergy (Verified 01/10/23 13:28) Itching magnesium hydroxide [From Maalox Maximum Strength] Allergy (Verified 01/24/23 11:41) Unknown simethicone [From Maalox Maximum Strength] Allergy (Verified 01/24/23 11:41) Unknown sulfamethoxazole [From Bactrim] Allergy (Verified 01/24/23 11:41) Unknown thioridazine [From Mellaril] Allergy (Verified 01/10/23 13:28) Itching trimethoprim [From Bactrim] Allergy (Verified 01/24/23 11:41) Unknown Assessment & Plan Assessment & Plan (1) S/P lumbar spinal fusion: Code(s): Z98.1 - Arthrodesis status Plan Procedure: L2-3 oblique lateral lumbar interbody fusion, removal of prior L3-5 posterior instrumentation. Cathy comes in today for her 2nd postoperative visit. She reports she is very satisfied with the surgery and feels much better than she did preoperatively. She reports she is up walking around and completing the majority of her ADLs. She reports that her leg pain has been significantly reduced compared to pre- operatively. She inquired about restrictions going forward, and specifically asked if she is able to participate in chair yoga. She was advised that she may return to normal activity as tolerated as long as she is not pushing herself beyond what she feels is comfortable at this time. We did discuss bending/lifting restrictions. We also discussed general guidelines for other restrictions going forward, and reviewed her x-rays from today when compared to her previous set x-rays. Imaging shows no movement of posterior instrumentation and no changes when compared to previous imaging. After reviewing her postoperative symptoms and imaging she began discussing her psychiatric concerns. She stated that she feels like she is dissociating from herself and is not mentally aware and she was just a few months ago. She states she does take psychiatric medications but has not had any recent medication change. She reports no recent injuries or changes to her physical health that she is aware. She does have a somewhat flat affect. It is difficult to discern if her symptoms are related to her psychiatric diagnoses or some sort of neurogenic cause. She was strongly advised to call her psychiatrist after her appointment today and discussed the possibility of a referral to Neurology. This would be best completed by her psychiatrist as they will be able to discern the difference between her baseline psychiatric presentation and possible new neurologic presentations. Patient is able to ambulate well with assistance of a cane, rises from a seated position without difficulty. No motor deficits. The patient does not need routine follow-up at this time. She is advised to call our office if she feels she needs to follow up with us in the future. Jose Weathers MD,PhD [facility] Orders: Orders XR lumbar spine 4V min Today M48.061 - Spinal stenosis, lumbar region without neurogenic claudication, M51.36 - Other intervertebral disc degeneration, lumbar region Coding Level of Care Code Global (20334) Diagnoses S/P lumbar spinal fusion Z98.1
== END 2023-07-12 11:20 | disposition home or self-care (01) ==
PROVIDERS: PCP Internal Medicine; Visit Provider Neurological Surgery
DX: Z98.1 Arthrodesis status (principal)
CPT/HCPCS: 99213